=== PATIENT | male | born 1995 | race Caucasian/White ===

== ENCOUNTER 2022-09-23 06:58 | Day surgery (SDC) | payer OTHER ==
--- NOTE | 2022-09-22 21:32 | P.HPOR ---
History of Present Illness H&P Date: 09/22/22 Chief Complaint: Left thumb flexor tendon laceration/digital nerve laceration Subjective: This is a 27 year old male that presents today for initial evaluation regarding a left thumb injury that occurred on 07/30/2022 while he was working on a vehicle. He cut his thumb with a box cutting knife. He was seen at an outside urgent care where the wound was stitched and was placed on antibiotics. He was given follow-up for the office, but states that he was unable to make the last 2 appointments. He states he [place] approximately [place] half away. Since the incident with the thumb he notes that he has been unable to flex the tip of the thumb and has decreased sensation on the border of the thumb distal to the area of the laceration. He often notes that he will get a sharp shocking pain down the outer portion of his thumb if he touches the area of the previous laceration. He has a history of a right wrist flexor tendon laceration at the level of the wrist that was treated surgically with grafting as a child. He has not had any surgery on this hand. He is currently unemployed. He is right-hand dominant. Physical Examination: LUE: AIN/PIN/Radial/Ulnar/Median motor intact. Radial/Ulnar/Median SILT. 2+/4 Radial/Ulnar pulses palpated. 5/5 APB, 5/5 FDI. Negative Finkelsteins, negative CMC grind, negative Durkan's compression. Transverse laceration at the level of the thumb IP joint, 2 cm. Inability to actively flex the thumb IP joint. Sensation diminished on the radial border of the thumb distal to the laceration. Patient has a palmaris longus. Imaging: X-Rays of the left thumb, 2 view taken in office today demonstrate no acute abnormality. Impression: 1.) Left thumb FPL laceration, subacute. 2.) Left thumb radial digital nerve laceration. Plan: Diagnosis and treatment options were discussed with the patient. We discussed the complexity of his injury due to the fact that he is now 7 and half weeks out from his thumb flexor tendon laceration injury. Patient states that he is unable to use the thumb as it is right now and wishes to pursue surgery. I discussed in depth that he may require either a primary repair of the flexor tendon, possible single stage grafting of his FPL tendon with palmaris longus autografting or possible 2 stage flexor tendon reconstruction with silastic implant henny placement for planned flexor tendon reconstruction based off of intra-operative findings along with digital nerve repair. Risks and benefits of surgery including bleeding, infection, damage to surrounding tissue, need for further surgery, residual numbness were discussed and the patient wished to go forward with surgery. Patient expressed understanding the importance of post operative compliance with lifting restrictions and bracing. The patient was agreeable with this plan, surgery will be scheduled this week. -Samuel Jacobs DO Orthopedic Hand/Upper Extremity Surgeon Past Medical History Past Medical History: No Reported History History of Any Multi-Drug Resistant Organisms: None Reported Past Surgical History: Appendectomy Past Anesthesia/Blood Transfusion Reactions: No Reported Reaction Smoking Status: Current every day smoker - Past Family History Father Family Medical History: Cancer Additional Family Medical History / Comment(s): brain Medications and Allergies Home Medications Medication Instructions Recorded Confirmed Type Ibuprofen 800 mg PO Q8H PRN 09/21/22 09/21/22 History Allergies Allergy/AdvReac Type Severity Reaction Status Date / Time cephalexin [From Keflex] Allergy Rash/Hives Verified 09/21/22 13:05 codeine Allergy Swelling Verified 09/21/22 13:05 Physical Examination Osteopathic Statement: *. No significant issues noted on an osteopathic structural exam other than those noted in the History and Physical/Consult.
[~2022-09-23 06:58] MED LIST: DEXAMETHASONE SOD PHOSPHATE 4 MG/ML 1 ML VIAL IV ONE; LACTATED RINGERS 1,000 ML IV SCH; LIDOCAINE 1% (10MG/ML) FOR IV START INTRADERMA PRN
[2022-09-23] MEDS ORDERED: HYDROmorphone 0.5 MG/0.5 ML SYRINGE IVP PRN (07:00)
[2022-09-23] MEDS ORDERED: ONDANSETRON 4 MG/2 ML VIAL IVP PRN (07:00)
[2022-09-23] MEDS ORDERED: MIDAZOLAM 2 MG/2 ML VIAL IVP ONE (07:58)
--- NOTE | 2022-09-23 08:34 | P.ANPRN ---
Procedure Note - Anesthesia - Nerve Block Performed Left Infraclavicular Single Time Out Performed: Yes ([id number]) Date of Procedure: 09/23/22 Procedure Start Time: 07:57 Procedure Stop Time: 08:56 Location of Patient: PreOp Indication: Acute Post-Operative Pain, Dx/Pain Location (Left wrist), Requested by Surgeon Specifically requested for management of pain by DrBarbara: Samuel Jacobs Sedation Type: Sedate with meaningful contact maintained Position: Supine Catheter: None Needle Types: Pajunk Needle Gauge: 21 (100 mm) Ultrasound used to visualize needle placement: Yes Ultrasound used to observe medication spread: Yes Injectate: 0.5% Ropivacaine (see comment for volume) (30 cc + 4 mg of decadron) Blood Aspirated: No Pain Paresthesia on Injection Noted: No Resistance on Injection: Normal Image Stored and Saved: Yes Events: Uneventful and Well Tolerated
[2022-09-23] MEDS ORDERED: LIDOCAINE 2% INJ 20 MG/ML (2 ML VIAL) ONE (08:35)
[2022-09-23] MEDS ORDERED: fentaNYL (PF) 50 MCG/ML 2 ML AMP ONE (08:35)
[2022-09-23] MEDS ORDERED: ROPIVACAINE 5 MG/ML 30 ML VIAL ONE (08:35)
[2022-09-23] MEDS ORDERED: DEXAMETHASONE SOD PHOSPHATE 4 MG/ML 1 ML VIAL ONE (08:35)
[2022-09-23] MEDS ORDERED: PHENYLEPHRINE-0.9% NACL SYG 1,000 MCG/10 ML SYRINGE ONE (08:35)
[2022-09-23] MEDS ORDERED: PROPOFOL 10 MG/ML 20 ML VIAL IV ONE (08:35)
[2022-09-23] MEDS ORDERED: BACITRACIN ZINC 500 UNIT/GM OINT 28.4 GM TUBE TOPICAL ONE (10:37)
[2022-09-23] MEDS ORDERED: LACTATED RINGERS 1,000 ML IV ONE (10:42)
[2022-09-23 11:19] VITALS: TEMP 97.2
[2022-09-23 11:25] VITALS: RESP 16
--- NOTE | 2022-09-23 12:06 | P.OP ---
Date of Procedure: 09/23/22 Preoperative Diagnosis: 1.) Left thumb flexor tendon laceration, subacute. 2.) Left thumb radial digital nerve laceration, subacute. Postoperative Diagnosis: 1.) Left thumb flexor tendon laceration, subacute. 2.) Left thumb radial digital nerve laceration, subacute. Procedure(s) Performed: 1.) Left thumb flexor tendon laceration repair without graft. 2.) Left thumb radial digital nerve laceration repair. 3.) Left thumb flexor tenolysis Anesthesia: NAVEEN, regional Surgeon: Samuel Jacobs Estimated Blood Loss (ml): 5 Pathology: none sent Condition: stable Disposition: PACU Description of Procedure: This is a 27 year old male who presents today for surgical intervention for a das bacute left thumb flexor pollicis longus tendon laceration repair and left thumb radial digital nerve repair. Patient had a delayed presentation and presented for initial evaluation to office 7 weeks out from the day of his injury. Risks and benefits of surgery were discussed with the patient including bleeding, damage to surrounding tissue, infection, need for further surgery as well as risks of anesthesia including pulmonary embolism and even and the patient wished to proceed with surgical intervention. The patient was seen in the pre- operative area by myself. Consent and H&P were completed and updated. The correct extremity was marked in the pre-operative area by myself and all other questions were answered. Operative Narrative: The patient was brought to the operating room by the department of anesthesia. The patient received a region block in the preoperative area by the Anesthesiologist. They remained on the portable stretcher and a rolling hand table was brought to the side of the operative extremity. Pre-operative time out was performed indicating the correct patient, procedure and laterality. All in the room agreed. Pre-operative antibiotics were given prior to skin incision. The patient was then drifted off to sleep by the department of anesthesia. A nonsterile tourniquet was then applied to the operative extremity and the left upper extremity was then prepped and draped in normal sterile fashion. The operative extremity was then exsanguinated with an esmarch bandage and the tourniquet was inflated to 250mmHg. The oblique laceration at the volar DIP joint crease was extended proximally and distally in a Hossein type fashion. Blunt dissection was taken down through subcutaneous tissues taking care to protect terminal branches of the radial and ulnar digital nerves. There appeared to be a complete FPL tendon laceration at the level of the DIP joint with 1.5cm left of robust FPL stump remaining. Due to the subacute nature of the wound there was extensive scarring of the distal stump. Adhesions were tenolysed with freer and 15 blade scalpel to separate the distal FPL stump from the volar plate. In anticipation of needing extra length/strength, the volar plate was dissected out and released from it's proximal origin leaving the distal portion intact. The A2 srinivasa was scarred but a mini hemostat was able to be bluntly passed through the srinivasa and with gentle spreading the sheath was able to be expanded. There also appeared to be a complete laceration of the radial digital nerve at the level of the DIP joint. The proximal tendon was visualized and scarred solidly to the floor of the spiral oblique srinivasa of the thumb. The A1 srinivasa was identified and released and the tendon was able to be delivered proximally through the A1 sheath opening. The tendon was very scarred down and required 15 blade scalpel to cause separation between the floor of the tendon sheath and the tendon in order for excursion to happen. The spiral oblique srinivasa was able to be preserved. After retrieving the tendon proximally there was good tendon excursion and this was able to be reduced to the distal stump, therefore, decision was made to go forward with primary repair with augmentation of the repair using the volar plate. Using a 4-0 ethibond suture a 2 strand core suture in a modified olivas fashion was performed in the proximal tendon and this was then passed through the spiral oblique srinivasa and then passed through the A2 srinivasa. The tendon was then held with a 22-gauge needle to prevent retraction. The remaining core suture was completed to the distal stump in a modified Olivas fashion. Following core suture placement, a 4-0 Prolene running epitendinous suture was then performed with the thumb IP joint held in flexion in a tension free manner. 3-0 Ethibond suture was then utilized to strengthen the repair of the tendon by suturing the volar plate to the tendon repair site with 2 interrupted [id number] stitches on both the radial and ulnar sides of the tendon. Attention was then drawn to the radial digital nerve laceration. Both proximal and distal ends of the lacerated nerve ends were sharply debrided with scissors to fresh nerve tissue. Under loupe magnification an 8-0 nylon suture was then used to perform a epitendinous repair with 4 simple sutures placed 90 degrees apart in a tension free manner. The thumb was then ranged and no locking or catching was appreciated at the tendon repair site. The wound was then irrigated and skin closure was performed with 4-0 nylon suture. Sterile dressing was applied including adaptic, 4x4s, webril and a plaster dorsal blocking splint and thumb spica splint with the thumb held in IP flexion was applied. Tourniquet was let down and the digit had immediate perfusion. The patient was then woken by the department of anesthesia and transferred to PACU in stable condition. Samuel Jacobs D.O. Orthopedic Hand/Upper Extremity Surgeon
[2022-09-23 12:24] VITALS: BP 121/78; PULSE 95
== END 2022-09-23 13:32 | disposition home or self-care (01) ==
LOC: OR 06:58
PROVIDERS: ATTEND Orthopaedic Surgery Hand Surgery
DX: S64.22XA Injury of radial nerve at wrist and hand level of left arm, initial encounter (principal); S64.32XA Injury of digital nerve of left thumb, initial encounter; S66.022A Laceration of long flexor muscle, fascia and tendon of left thumb at wrist and hand level, initial encounter; W26.0XXA Contact with knife, initial encounter; G89.18 Other acute postprocedural pain; F17.200 Nicotine dependence, unspecified, uncomplicated; F12.90 Cannabis use, unspecified, uncomplicated; F90.9 Attention-deficit hyperactivity disorder, unspecified type; Z98.890 Other specified postprocedural states; Z90.49 Acquired absence of other specified parts of digestive tract; Z80.8 Family history of malignant neoplasm of other organs or systems; Z79.1 Long term (current) use of non-steroidal anti-inflammatories (NSAID); Z88.1 Allergy status to other antibiotic agents; Z88.5 Allergy status to narcotic agent
CPT/HCPCS: 64831; 26440; 64450; 76942; J2250; J1100; J0690; J2405; J3010; J2795; J2370; J2704; J2001